=== PATIENT | female | born 1965 | race Caucasian/White ===

== ENCOUNTER 2018-09-19 08:50 | Inpatient (IN) | payer BC ==
[2018-09-19] MEDS ORDERED: ACETAMINOPHEN 325 MG TAB PO (11:30)
[2018-09-19] MEDS ORDERED: NACL 0.9% 3 ML SYG IV (11:30)
[2018-09-19] MEDS ORDERED: ZOLPIDEM 5 MG TAB PO (11:30)
[2018-09-19] MEDS ORDERED: HYDROCODONE/APAP (5/325) TAB PO (11:30)
[2018-09-19] MEDS: morphine 2 MG INJ IV ×2 (11:33→15:39)
[2018-09-19] MEDS ORDERED: PIPER-TAZO 3.375 GM IV (PMX) 100 ML IVPB (12:00)
[2018-09-19] MEDS: Metronidazole 500 MG in NS 100 ML IVPB ×2 (13:26→22:00)
[2018-09-19] MEDS: LEVOFLOXACIN 750MG/D5W (PMX) 150 ML IVPB (13:26)
[2018-09-19] MEDS: ONDANSETRON 4 MG INJ IV (22:00)
[2018-09-19] MEDS: morphine 4 MG/ML VIAL IV (22:00)
[2018-09-20] MEDS: Metronidazole 500 MG in NS 100 ML IVPB ×3 (05:28→22:03)
[2018-09-20] MEDS: DEXTROSE 5%-0.45% NACL 1,000 ML IV (05:28)
[2018-09-20 06:23] LABS: ADD MAN DIFF? NO
[2018-09-20 06:34] LABS: WHITE BLOOD COUNT 17.9 10^3/ul (4.8-10.8)
[2018-09-20 06:34] LABS: BASOPHIL # 0.1 10^3/ul (0.0-0.1); BASOPHILS % 0.3 % (0.0-2.0); HEMATOCRIT 40.9 % (37.0-47.0); LYMPHOCYTES # 1.2 10^3/ul (0.8-2.9); LYMPHOCYTES % 6.7 % (15.0-51.0); MEAN CORPUSCULAR HEMOGLOBIN 27.4 pg (29.0-33.0); MEAN CORPUSCULAR HGB CONC 31.8 g/dl (32.0-37.0); MEAN CORPUSCULAR VOLUME 86.1 fl (82.0-101.0); MEAN PLATELET VOLUME 11.9 fl (7.4-10.4); MONOCYTE # 1.5 10^3/ul (0.3-0.9); MONOCYTES % 8.2 % (0.0-11.0); NEUTROPHILS % 84.1 % (39.0-77.0); PLATELET COUNT 208 10^3/UL (140-415); RED BLOOD COUNT 4.75 10^6/ul (4.20-5.40)
[2018-09-20] MEDS ORDERED: SEVOFLURANE 15 MIN (07:00)
[2018-09-20] MEDS ORDERED: LIDOCAINE 2% (SDV) 5 ML INJ (07:00)
[2018-09-20 07:16] LABS: ALANINE AMINOTRANSFERASE 16 IU/L (13-69); ALBUMIN 3.8 g/dl (3.3-4.9); ALBUMIN/GLOBULIN RATIO 1.11; ALKALINE PHOSPHATASE 88 IU/L (42-121); ANION GAP 8 (5-13); ASPARTATE AMINO TRANSFERASE 20 IU/L (15-46); BILIRUBIN,INDIRECT 0.5 mg/dl (0-1.1); BILIRUBIN,TOTAL 0.5 mg/dl (0.2-1.3); BLOOD UREA NITROGEN 19 mg/dl (7-20); CALCIUM 9.9 mg/dl (8.4-10.2); CARBON DIOXIDE 32 mmol/L (21-31); CHLORIDE 103 mmol/L (97-110); CREATININE 0.95 mg/dl (0.44-1.00); Estimated GFR > 60 mL/min (>60); GLUCOSE 114 mg/dl (70-220); MAGNESIUM 2.1 mg/dl (1.7-2.5); PHOSPHORUS 3.2 mg/dl (2.5-4.9); POTASSIUM 4.1 mmol/L (3.5-5.1); SODIUM 143 mmol/L (135-144); TOTAL PROTEIN 7.2 g/dl (6.1-8.1)
[2018-09-20] MEDS ORDERED: PROPOFOL 100 ML (07:35)
[2018-09-20] MEDS ORDERED: SUCCINYLCHOLINE CHLORIDE 100 MG/5 ML SYG IV (07:37)
[2018-09-20] MEDS ORDERED: ROCURONIUM 50 MG INJ (07:37)
[2018-09-20 07:49] LABS: HEMOGLOBIN A1C 5.4 % (0-5.9)
[2018-09-20] MEDS: BUPIVACAINE 0.5%/EPI (SDV) 30 ML INJ (08:20)
[2018-09-20] MEDS: LIDOCAINE 1% (MPF) 30 ML INJ (08:20)
[2018-09-20] MEDS ORDERED: DEXAMETHASONE 4 MG/ML 5 ML INJ (08:25)
[2018-09-20] MEDS ORDERED: ONDANSETRON 4 MG INJ (08:25)
[2018-09-20] MEDS ORDERED: PHENYLephrine 10 MG INJ (08:41)
[2018-09-20] MEDS: ALBUMIN HUMAN 5% 250 ML (09:15)
[2018-09-20] MEDS ORDERED: FENTAnyl 50 MCG/ML VIAL IV ×3 (10:00)
[2018-09-20] MEDS ORDERED: ALBUTEROL 0.083% (NEB) 2.5 MG/3 ML AMP HHN (10:00)
[2018-09-20] MEDS ORDERED: MEPERIDINE 25 MG INJ IV (10:00)
[2018-09-20] MEDS ORDERED: EPHEDrine SULFATE 50 MG/5 ML SYG IV (10:00)
[2018-09-20] MEDS ORDERED: LABETALOL HCL 20MG INJ IV (10:00)
[2018-09-20] MEDS ORDERED: DIPHENHYDRAMINE 50 MG INJ IV (10:00)
[2018-09-20] MEDS ORDERED: ONDANSETRON 4 MG INJ IV ×2 (10:00)
[2018-09-20] MEDS ORDERED: HYDROmorphONE 1 MG/5 ML IV SYRINGE IV ×2 (10:00)
[2018-09-20] MEDS ORDERED: METOCLOPRAMIDE 10 MG INJ IV (10:00)
[2018-09-20] MEDS ORDERED: hydrALAzine 20 MG INJ IV (10:00)
[2018-09-20] MEDS: HYDROmorphONE 1 MG/5 ML IV SYRINGE IV (10:12)
[2018-09-20] MEDS: LEVOFLOXACIN 500MG/D5W (PMX) 100 ML IVPB (11:28)
[2018-09-20] MEDS ORDERED: metroNIDAZOLE 500 MG/NS (PMX) 100 ML IVPB (14:00)
[2018-09-20] MEDS: D5-NS + KCL 20 MEQ 1,000 ML IV ×2 (16:21→20:00)
[2018-09-21] MEDS: D5-NS + KCL 20 MEQ 1,000 ML IV ×3 (05:32→18:48)
[2018-09-21] MEDS: Metronidazole 500 MG in NS 100 ML IVPB ×3 (05:32→21:27)
[2018-09-21 05:47] LABS: ADD MAN DIFF? NO
[2018-09-21 05:54] LABS: BASOPHILS % 0.1 % (0.0-2.0); HEMATOCRIT 29.2 % (37.0-47.0); HEMOGLOBIN 9.3 g/dl (12.0-16.0); LYMPHOCYTES # 1.2 10^3/ul (0.8-2.9); LYMPHOCYTES % 9.5 % (15.0-51.0); MEAN CORPUSCULAR HEMOGLOBIN 27.4 pg (29.0-33.0); MEAN CORPUSCULAR HGB CONC 31.8 g/dl (32.0-37.0); MEAN CORPUSCULAR VOLUME 85.9 fl (82.0-101.0); MEAN PLATELET VOLUME 11.8 fl (7.4-10.4); MONOCYTE # 1.1 10^3/ul (0.3-0.9); MONOCYTES % 8.9 % (0.0-11.0); NEUTROPHIL # 9.8 10^3/ul (1.6-7.5); PLATELET COUNT 183 10^3/UL (140-415); RED CELL DISTRIBUTION WIDTH 15.1 % (11.5-14.5)
[2018-09-21 05:54] LABS: WHITE BLOOD COUNT 12.1 10^3/ul (4.8-10.8)
[2018-09-21 06:29] LABS: ALANINE AMINOTRANSFERASE 42 IU/L (13-69); ALBUMIN/GLOBULIN RATIO 1.07; ALKALINE PHOSPHATASE 72 IU/L (42-121); ANION GAP 7 (5-13); ASPARTATE AMINO TRANSFERASE 43 IU/L (15-46); BILIRUBIN,INDIRECT 0.2 mg/dl (0-1.1); BILIRUBIN,TOTAL 0.2 mg/dl (0.2-1.3); BLOOD UREA NITROGEN 14 mg/dl (7-20); CALCIUM 8.7 mg/dl (8.4-10.2); CARBON DIOXIDE 28 mmol/L (21-31); CHLORIDE 107 mmol/L (97-110); CREATININE 0.85 mg/dl (0.44-1.00); Estimated GFR > 60 mL/min (>60); GLUCOSE 129 mg/dl (70-220); POTASSIUM 3.8 mmol/L (3.5-5.1); SODIUM 142 mmol/L (135-144); TOTAL PROTEIN 5.8 g/dl (6.1-8.1)
[2018-09-21] MEDS: ENOXAPARIN 40 MG/0.4 ML SYG SC (06:35)
[2018-09-21] MEDS: LEVOFLOXACIN 500MG/D5W (PMX) 100 ML IVPB (09:13)
[2018-09-21 13:23] LABS: HEMATOCRIT 29.2 % (37.0-47.0)
[2018-09-21] MEDS: ACETAMINOPHEN 325 MG TAB PO (20:10)
[2018-09-22 05:54] LABS: WHITE BLOOD COUNT 6.2 10^3/ul (4.8-10.8)
[2018-09-22 05:54] LABS: ADD MAN DIFF? NO
[2018-09-22 05:55] LABS: BASOPHILS % 0.2 % (0.0-2.0); EOSINOPHILS # 0.1 10^3/ul (0.0-0.5); EOSINOPHILS % 1.1 % (0.0-7.0); HEMATOCRIT 27.9 % (37.0-47.0); HEMOGLOBIN 8.8 g/dl (12.0-16.0); LYMPHOCYTES # 1.8 10^3/ul (0.8-2.9); LYMPHOCYTES % 28.7 % (15.0-51.0); MEAN CORPUSCULAR HEMOGLOBIN 27.6 pg (29.0-33.0); MEAN CORPUSCULAR HGB CONC 31.5 g/dl (32.0-37.0); MEAN CORPUSCULAR VOLUME 87.5 fl (82.0-101.0); MEAN PLATELET VOLUME 11.6 fl (7.4-10.4); MONOCYTE # 0.4 10^3/ul (0.3-0.9); MONOCYTES % 7.1 % (0.0-11.0); NEUTROPHIL # 3.9 10^3/ul (1.6-7.5); NEUTROPHILS % 61.9 % (39.0-77.0); PLATELET COUNT 176 10^3/UL (140-415); RED BLOOD COUNT 3.19 10^6/ul (4.20-5.40)
[2018-09-22] MEDS: D5-NS + KCL 20 MEQ 1,000 ML IV ×2 (05:59→11:48)
[2018-09-22] MEDS: Metronidazole 500 MG in NS 100 ML IVPB (05:59)
[2018-09-22] MEDS: ENOXAPARIN 40 MG/0.4 ML SYG SC (06:03)
[2018-09-22 06:37] LABS: ALANINE AMINOTRANSFERASE 32 IU/L (13-69); ALBUMIN 2.7 g/dl (3.3-4.9); ALBUMIN/GLOBULIN RATIO 1.03; ALKALINE PHOSPHATASE 57 IU/L (42-121); ANION GAP 5 (5-13); ASPARTATE AMINO TRANSFERASE 31 IU/L (15-46); BILIRUBIN,INDIRECT 0.2 mg/dl (0-1.1); BILIRUBIN,TOTAL 0.2 mg/dl (0.2-1.3); BLOOD UREA NITROGEN 13 mg/dl (7-20); CARBON DIOXIDE 29 mmol/L (21-31); CHLORIDE 107 mmol/L (97-110); Estimated GFR > 60 mL/min (>60); GLUCOSE 81 mg/dl (70-220); POTASSIUM 4.1 mmol/L (3.5-5.1); SODIUM 141 mmol/L (135-144); TOTAL PROTEIN 5.3 g/dl (6.1-8.1)
[2018-09-22] MEDS: DOCUSATE SODIUM 100 MG CAP PO (08:28)
[2018-09-22] MEDS: ACETAMINOPHEN 325 MG TAB PO (08:28)
[2018-09-22] MEDS: LEVOFLOXACIN 500MG/D5W (PMX) 100 ML IVPB (10:00)
== END 2018-09-22 13:20 | disposition home or self-care (01) | DRG 419 ==
LOC: 2NE 08:50
PROVIDERS: Internal Medicine
PROC: 0FT44ZZ Resection of Gallbladder, Percutaneous Endoscopic Approach (ICD-10-PCS; principal; 2018-09-20 07:55)
DX: K80.00 Calculus of gallbladder with acute cholecystitis without obstruction (principal); E03.9 Hypothyroidism, unspecified; E66.01 Morbid (severe) obesity due to excess calories; Z68.39 Body mass index [BMI] 39.0-39.9, adult
CPT/HCPCS: 78226; 80053; 83036; 83735; 84100; 84703; 85014; 85025; 88304